=== PATIENT | male | born 1990 | race Caucasian/White ===

== ENCOUNTER 2017-11-16 02:18 | Inpatient (IN) | payer MEDICAID, OTHER ==
[~2017-11-16] VITALS: Ht 172.7 cm; Wt 76.7 kg
[~2017-11-16 02:18] MED LIST: ARIP10TA8 PO; DIPH50 PO; TRAZ-220 PO
[2017-11-16] MEDS ORDERED: [UNRECOGNIZED DRUG - OTHER] PO (02:34)
[2017-11-16] MEDS ORDERED: QUET300T2 PO (02:34)
[2017-11-16 03:15] LABS: BASOPHILS % (AUTO) 0.3 % (0.0-2.0); EOSINOPHILS % (AUTO) 0.1 % (1.0-6.0); HEMATOCRIT 45.5 % (41-53); HEMOGLOBIN 15.5 g/dL (13.5-17.5); LYMPHOCYTES % (AUTO) 10.6 % (22.0-44.0); MEAN CORPUSCULAR HGB CONC 34.1 G/dL (31.0-37.0); MEAN CORPUSCULAR VOLUME 91 fL (80-100); MONOCYTES # (AUTO) 0.8 K/uL (0.1-1.0); MONOCYTES % (AUTO) 8.5 % (2.0-9.0); NEUTROPHILS # (AUTO) 7.3 K/uL (1.8-7.7); NEUTROPHILS % (AUTO) 80.5 % (40.0-70.0); PLATELET COUNT (AUTO) 273 K/uL (150-450); RED BLOOD CELL COUNT(AUTO) 5.01 MIL/uL (4.50-5.90); RED CELL DISTRIBUTION WIDTH 12.5 % (11.5-14.5)
[2017-11-16] MEDS ORDERED: HALOPERIDOL LACTATE 5 MG/ML VIAL IM ONE (03:15)
[2017-11-16] MEDS ORDERED: LORazepam 2 MG/ML VIAL IM ONE (03:15)
[2017-11-16] MEDS ORDERED: DiphenhydrAMINE HCL 50 MG/ML VIAL IM ONE (03:15)
[2017-11-16 03:21] LABS: ANION GAP 9 mmol/L (8-16); CALCIUM, TOTAL 9.1 mg/dL (8.8-10.5); CARBON DIOXIDE 28 mmol/L (22-29); CHLORIDE 103 mmol/L (98-107); GLOMERULAR FILTR. RATE CALC > 60 mL/min (>60); GLUCOSE,RANDOM 100 mg/dL (70-110); POTASSIUM 3.3 mmol/L (3.5-5.1); SODIUM SERUM 140 mmol/L (136-145); UREA NITROGEN, BLOOD 9 mg/dL (7-18)
[2017-11-16 03:25] LABS: AMPHET/METH SCREEN,URINE POSITIVE (NEGATIVE); BARBITURATE SCREEN, URINE NEGATIVE (NEGATIVE); BENZODIAZEPINES SCREEN,URINE NEGATIVE (NEGATIVE); CANNABINOID SCREEN,URINE POSITIVE (NEGATIVE); COCAINE SCREEN,URINE NEGATIVE (NEGATIVE); METHADONE SCREEN, URINE NEGATIVE (NEGATIVE); OPIATE SCREEN,URINE NEGATIVE (NEGATIVE); PHENCYCLIDINE SCREEN,URINE NEGATIVE (NEGATIVE)
[2017-11-16 03:28] LABS: ALANINE AMINOTRANSFERASE 13 U/L (12-78); ALBUMIN 4.3 g/dL (3.4-5.0); ALKALINE PHOSPHATASE 70 U/L (46-116); ASPARTATE AMINOTRANSFERASE 8 U/L (15-37); BILIRUBIN,TOTAL 0.6 mg/dL (0.1-1.0); TOTAL PROTEIN, SERUM 7.7 g/dL (6.4-8.2)
[2017-11-16] MEDS ORDERED: ZOLPIDEM TARTRATE 10 MG TABLET PO PRN (03:30)
[2017-11-16] MEDS ORDERED: HALOPERIDOL 5 MG TABLET PO PRN (03:30)
[2017-11-16 07:34] LABS: CHOL/HDL RATIO 3.1 (4.2-7.3); CHOLESTEROL 118 mg/dL (131-200); HDL CHOLESTEROL 38 mg/dL (40-60); LDL CHOL (CALC.) 71 mg/dL (0-130); THYROID STIMULATING HORMONE 1.39 uIU/mL (0.36-3.74); TRIGLYCERIDES 47 mg/dL (15-150)
[2017-11-16 08:03] LABS: FREE T4 (FREE THYROXINE) < 0.10 ng/dL (0.76-1.46)
[2017-11-16 09:02] VITALS: BP 112/63
[2017-11-16] MEDS ORDERED: TETANUS/DIPHTHERIA TOXOID [ADULT] 0.5 ML SYRINGE IM ONE (15:00)
[2017-11-16] MEDS ORDERED: POTASSIUM CHLORIDE 20 MEQ ER TABLET PO ONE (15:00)
[2017-11-16 18:23] VITALS: BP 109/66
[2017-11-16] MEDS: LORazepam 2 MG TABLET PO PRN (19:30)
[2017-11-16] MEDS: QUEtiapine FUMARATE 300 MG TABLET PO SCH (20:01)
[2017-11-16] MEDS ORDERED: ALBUTEROL SULFATE HFA 90 MCG/PUFF 8 GM INHALER IH PRN (21:30)
[2017-11-16] MEDS ORDERED: ONDANSETRON HCL 4 MG TABLET PO PRN (21:30)
[2017-11-16] MEDS ORDERED: MAG HYDROX/AL HYDROX/SIMETH ES 30 ML SUSPENSION UDCUP PO PRN (21:30)
[2017-11-16] MEDS ORDERED: IBUPROFEN 600 MG TABLET PO PRN (21:30)
[2017-11-16] MEDS ORDERED: LOPERAMIDE HCL 2 MG CAPSULE PO PRN (21:30)
[2017-11-16] MEDS ORDERED: CloNIDine HCL 0.1 MG TABLET PO PRN (21:30)
[2017-11-16] MEDS ORDERED: MAGNESIUM HYDROXIDE SUSPENSION 30 ML UDCUP PO PRN (21:30)
[2017-11-16] MEDS ORDERED: ACETAMINOPHEN 325 MG TABLET PO PRN (21:30)
[2017-11-16] MEDS ORDERED: BACITRACIN 28.4 GM OINTMENT TP PRN (21:30)
[2017-11-16] MEDS ORDERED: PETROLATUM,WHITE 71 GM JELLY TP PRN (21:30)
[2017-11-16] MEDS ORDERED: BENZOCAINE/MENTHOL LOZENGE MM PRN (21:30)
[2017-11-17 06:57] LABS: ANION GAP 8 mmol/L (8-16); CALCIUM, TOTAL 8.7 mg/dL (8.8-10.5); CARBON DIOXIDE 31 mmol/L (22-29); CHLORIDE 106 mmol/L (98-107); CREATININE 0.83 mg/dL (0.60-1.30); GLOMERULAR FILTR. RATE CALC > 60 mL/min (>60); GLUCOSE,RANDOM 92 mg/dL (70-110); SODIUM SERUM 145 mmol/L (136-145); UREA NITROGEN, BLOOD 11 mg/dL (7-18)
[2017-11-17 08:25] VITALS: BP 126/83
[2017-11-17] MEDS: OMEPRAZOLE 20 MG CAPSULE PO SCH (08:46)
[2017-11-17] MEDS: DOCUSATE SODIUM 100 MG CAPSULE PO SCH (08:46)
[2017-11-17] MEDS: CITALOPRAM HYDROBROMIDE 20 MG TABLET PO SCH (10:47)
[2017-11-17] MEDS: LORazepam 2 MG TABLET PO PRN (11:04)
[2017-11-17] MEDS: QUEtiapine FUMARATE 300 MG TABLET PO SCH (20:30)
[2017-11-18 08:05] VITALS: BP 110/72
[2017-11-18] MEDS: CITALOPRAM HYDROBROMIDE 20 MG TABLET PO SCH (08:17)
[2017-11-18] MEDS: DOCUSATE SODIUM 100 MG CAPSULE PO SCH (08:17)
[2017-11-18] MEDS: OMEPRAZOLE 20 MG CAPSULE PO SCH (08:18)
[2017-11-18] MEDS: QUEtiapine FUMARATE 300 MG TABLET PO SCH (20:31)
[2017-11-18] MEDS: LORazepam 2 MG TABLET PO PRN (23:42)
[2017-11-19 00:35] VITALS: BP 118/64
[2017-11-19 08:09] VITALS: BP 109/65
[2017-11-19] MEDS: OMEPRAZOLE 20 MG CAPSULE PO SCH (09:12)
[2017-11-19] MEDS: CITALOPRAM HYDROBROMIDE 20 MG TABLET PO SCH (09:12)
[2017-11-19] MEDS: DOCUSATE SODIUM 100 MG CAPSULE PO SCH (09:13)
[2017-11-19 16:00] VITALS: BP 124/63
[2017-11-19] MEDS: LORazepam 2 MG TABLET PO PRN (16:41)
[2017-11-19] MEDS: QUEtiapine FUMARATE 300 MG TABLET PO SCH (20:16)
[2017-11-20 08:20] VITALS: BP 123/62
[2017-11-20] MEDS: CHOLECALCIFEROL (VIT D3) 1,000 UNITS TABLET PO SCH (08:51)
[2017-11-20] MEDS: CITALOPRAM HYDROBROMIDE 20 MG TABLET PO SCH (08:52)
[2017-11-20] MEDS: DOCUSATE SODIUM 100 MG CAPSULE PO SCH (08:52)
[2017-11-20] MEDS: OMEPRAZOLE 20 MG CAPSULE PO SCH (08:52)
[2017-11-20] MEDS: QUEtiapine FUMARATE 300 MG TABLET PO SCH (20:16)
[2017-11-20] MEDS: LORazepam 2 MG TABLET PO PRN (21:02)
[2017-11-20 21:31] VITALS: BP 122/65
[2017-11-21 08:00] VITALS: BP 120/80
[2017-11-21] MEDS ORDERED: CITA20TA17 PO (09:03)
[2017-11-21] MEDS ORDERED: QUET300T18 PO (09:03)
[2017-11-21] MEDS: CITALOPRAM HYDROBROMIDE 20 MG TABLET PO SCH (10:27)
[2017-11-21] MEDS: DOCUSATE SODIUM 100 MG CAPSULE PO SCH (10:29)
[2017-11-21] MEDS: CHOLECALCIFEROL (VIT D3) 1,000 UNITS TABLET PO SCH (10:29)
[2017-11-21] MEDS: OMEPRAZOLE 20 MG CAPSULE PO SCH (10:29)
[2017-11-21] MEDS ORDERED: VITAD1000 PO (12:38)
[2017-11-21] MEDS ORDERED: DSS100 PO (12:38)
[2017-11-21] MEDS ORDERED: OMEP20 PO (12:39)
== END 2017-11-21 13:00 | disposition home or self-care (01) | DRG 750 ==
LOC: EMS 02:19 → 3EC 05:40
DX: F25.0 Schizoaffective disorder, bipolar type (principal); M41.9 Scoliosis, unspecified; F41.9 Anxiety disorder, unspecified; G47.00 Insomnia, unspecified; K59.00 Constipation, unspecified; G89.29 Other chronic pain; M54.9 Dorsalgia, unspecified; F17.200 Nicotine dependence, unspecified, uncomplicated; F15.10 Other stimulant abuse, uncomplicated; Y04.1XXA Assault by human bite, initial encounter; E55.9 Vitamin D deficiency, unspecified; F12.10 Cannabis abuse, uncomplicated; Z79.899 Other long term (current) drug therapy; Y92.89 Other specified places as the place of occurrence of the external cause; Y99.8 Other external cause status
CPT/HCPCS: 82306; 83036; 84439; 84443; 90714; 96372; 99285; G0480; J1200; J1630; J2060